=== PATIENT | male | born 1965 | race Caucasian/White ===

== ENCOUNTER 2021-07-09 08:40 | Emergency (ER) | payer SELFPAY ==
[2021-07-09] MEDS ORDERED: Sodium Chloride 0.9% 1,000 ML IV ONE (09:11)
[2021-07-09] MEDS ORDERED: Metoclopramide 10 MG/2 ML SDV IVPUSH ONE (09:12)
[2021-07-09] MEDS ORDERED: Acetaminophen/Butalbital/Caffeine 325-50-40 MG Tab PO ONE (09:12)
[2021-07-09] MEDS ORDERED: diphenhydrAMINE 50 MG/ML SDV IVPUSH ONE (09:12)
[2021-07-09 09:30] LABS: BLOOD UREA NITROGEN,BUN 10 mg/dL (7.0-18.0); CARBON DIOXIDE,CO2 25.3 mmol/L (21.0-32.0); CHLORIDE,CL 102 mmol/L (98-107); GLUCOSE RANDOM 111 mg/dL (74-106); POTASSIUM,K 4.3 mmol/L (3.5-5.1); SODIUM,NA 137 mmol/L (136-148)
[2021-07-09 10:33] LABS: CORONAVIRUS COVID-19 NAA NEGATIVE (NEGATIVE); INFLUENZA A NAA NEGATIVE (NEGATIVE); INFLUENZA B NAA NEGATIVE (NEGATIVE)
[2021-07-09] MEDS ORDERED: Iopamidol 755 MG/ML 500 ML Multipack Bottle IVPUSH STA (11:04)
[2021-07-09] MEDS ORDERED: Aspirin 81 MG Tab.Chew PO ONE (11:54)
[2021-07-09] MEDS ORDERED: atorvaSTATin 40 MG Tab PO ONE ×2 (11:55→12:30)
[2021-07-09] MEDS ORDERED: Nicotine 21 MG/24 Hr Patch TRDERM ONE (13:13)
== END 2021-07-09 13:39 ==
LOC: MW.ED 08:40
DX: I63.532 Cerebral infarction due to unspecified occlusion or stenosis of left posterior cerebral artery (principal); Z20.822 Contact with and (suspected) exposure to COVID-19; Z88.0 Allergy status to penicillin
CPT/HCPCS: 0240U; 36415; 70450; 70496; 70498; 80053; 85025; 85610; 85730; 96374; 96375; 99284; A9270; J1200; J2765; J7030; Q9967

== ENCOUNTER 2021-10-25 07:04 | Emergency (ER) | payer MEDICAID ==
[2021-10-25] MEDS ORDERED: Ketorolac 30 MG/ML SDV IM STA (08:13)
== END 2021-10-25 10:02 | disposition home or self-care (01) ==
LOC: MW.ED 07:04
DX: S16.1XXA Strain of muscle, fascia and tendon at neck level, initial encounter (principal); F17.210 Nicotine dependence, cigarettes, uncomplicated; Z79.899 Other long term (current) drug therapy; Z88.0 Allergy status to penicillin; X58.XXXA Exposure to other specified factors, initial encounter
CPT/HCPCS: 72125; 96372; 99283; J1885

== ENCOUNTER 2023-07-04 17:28 | Emergency (ER) | payer MEDICAID | END 2023-07-04 20:08 | disposition home or self-care (01) | LOC: MW.ED 17:28 | DX: S52.611A Displaced fracture of right ulna styloid process, initial encounter for closed fracture (principal); F17.210 Nicotine dependence, cigarettes, uncomplicated; Z86.73 Personal history of transient ischemic attack (TIA), and cerebral infarction without residual deficits; Z79.899 Other long term (current) drug therapy; Z88.0 Allergy status to penicillin; Z75.8 Other problems related to medical facilities and other health care; W10.9XXA Fall (on) (from) unspecified stairs and steps, initial encounter | CPT/HCPCS: 73110-26-RT; 73110-RT; 73130-26-RT; 73130-RT; 99283 ==

== ENCOUNTER 2024-02-23 07:16 | Emergency (ER) | payer MEDICAID ==
[2024-02-23] MEDS: Diazepam 5 MG Tab PO ONE (07:46)
[2024-02-23] MEDS: Lidocaine 4% 1 each Patch TOP ONE (07:46)
[2024-02-23] MEDS: Ketorolac 30 MG/ML SDV IM ONE (07:47)
== END 2024-02-23 08:58 | disposition home or self-care (01) ==
LOC: MW.ED 07:16
DX: M54.6 Pain in thoracic spine (principal); I10 Essential (primary) hypertension; E78.00 Pure hypercholesterolemia, unspecified; Z90.49 Acquired absence of other specified parts of digestive tract; Z88.0 Allergy status to penicillin; Z79.82 Long term (current) use of aspirin; Z79.899 Other long term (current) drug therapy
CPT/HCPCS: 96372; 99283; A9270; J1885

== ENCOUNTER 2024-03-13 22:49 | Emergency (ER) | payer MEDICAID ==
[2024-03-13] MEDS ORDERED: Sodium Chloride 0.9% 2.5 ML Syringe FLUSH PRN (23:39)
[2024-03-13] MEDS ORDERED: Sodium Chloride 0.9% 10 ML Syringe FLUSH PRN (23:39)
[2024-03-13 23:45] LABS: BASOPHILS ABSOLUTE AUTO 0.04 K/uL (0.00-0.20); BASOPHILS PERCENT AUTO 0.3 % (0.0-1.0); EOSINOPHILS ABSOLUTE AUTO 0.03 K/uL (0.00-0.45); EOSINOPHILS PERCENT AUTO 0.2 % (0.0-6.0); HEMATOCRIT 44.7 % (42.0-52.0); HEMOGLOBIN 15.4 g/dL (14.0-18.0); IMMATURE GRAN ABSOLUTE AUTO 0.04 K/uL (0.00-0.05); IMMATURE GRAN PERCENT AUTO 0.3 % (0.0-0.4); LYMPHOCYTES ABSOLUTE AUTO 4.17 K/uL (1.00-4.80); LYMPHOCYTES PERCENT AUTO 32.7 % (24.0-44.0); MEAN CORPUSCULAR HEMOGLOBIN 32.1 pg (28.0-32.0); MEAN CORPUSCULAR HGB CONC 34.5 g/dL (32.0-36.0); MEAN CORPUSCULAR VOLUME 93.1 fL (83.0-99.0); MEAN PLATELET VOLUME 11.1 fL (9.4-12.4); MONOCYTES ABSOLUTE AUTO 0.87 K/uL (0.00-0.80); MONOCYTES PERCENT AUTO 6.8 % (0.0-8.0); NEUTROPHILS PERCENT AUTO 59.7 % (41.0-71.0); PLATELET COUNT,PLT 399 K/uL (150-400); WHITE BLOOD CELL COUNT,WBC 12.75 K/uL (3.9-11.3)
[2024-03-13 23:53] LABS: INR 0.97 (0.86-1.11)
[2024-03-14 00:06] LABS: A/G RATIO 1.1 (0.9-1.6); ALANINE AMINOTRANSFERASE,ALT 25 IU/L (14-63); ALBUMIN 4.1 g/dL (3.4-5.0); ALKALINE PHOSPHATASE 101 U/L (46-116); ASPARTATE AMNIOTRANSFERASE,AST 24 IU/L (15-37); BILIRUBIN TOTAL 0.3 mg/dL (0.2-1.0); BLOOD UREA NITROGEN,BUN 8 mg/dL (7.0-18.0); CALCIUM 8.7 mg/dL (8.5-10.1); CARBON DIOXIDE,CO2 22.9 mmol/L (21.0-32.0); CHLORIDE,CL 102 mmol/L (98-107); CREATININE 0.8 mg/dL (0.8-1.3); GLUCOSE RANDOM 128 mg/dL (74-106); LIPASE 17 U/L (16-77); POTASSIUM,K 3.7 mmol/L (3.5-5.1); PROTEIN TOTAL,TP 7.7 g/dL (6.4-8.2); SODIUM,NA 139 mmol/L (136-148); TSH ULTRASENSITIVE 1.31 uIU/mL (0.36-3.74)
[2024-03-14 00:09] LABS: ESTIMATED GFR 103 mL/min (>60)
[2024-03-14] MEDS: Iopamidol 755 MG/ML 500 ML Multipack Bottle IVPUSH ONE (00:19)
== END 2024-03-14 02:24 | disposition home or self-care (01) ==
LOC: MW.ED 22:49
DX: R41.0 Disorientation, unspecified (principal); E78.00 Pure hypercholesterolemia, unspecified; F17.210 Nicotine dependence, cigarettes, uncomplicated; Z90.49 Acquired absence of other specified parts of digestive tract; Z79.899 Other long term (current) drug therapy; Z79.82 Long term (current) use of aspirin; Z88.0 Allergy status to penicillin; Z75.8 Other problems related to medical facilities and other health care
CPT/HCPCS: 36415; 70450; 70496; 70498; 80053; 82947; 83690; 84443; 84484; 85025; 85610; 93005; 99285; Q9967